=== PATIENT | female | born 1970 | race Asian ===

== ENCOUNTER → 2017-05-25 | Outpatient (CLI) | payer OTHER ==
--- NOTE | 2017-05-25 14:50 | REP ---
Bilateral extremity duplex venous ultrasound: History: Evaluate for reflux of DVT. DVT evaluation: The deep veins are anechoic and fully compressible from the groin to the popliteal fossa in both lower extremities on two-dimensional scanning. Color flow imaging is homogeneous. Spectral Doppler interrogation demonstrates intact respiratory variation in flow and normal manual augmentation of flow bilaterally. There is no evidence of DVT. Reflux evaluation: There is no observable reflux in the superficial or deep system of the right lower extremity with bed tilted or standing. The right greater saphenous vein measures 4.7 mm at the saphenofemoral junction in diameter. At the midthigh level its measurement is 4.1 mm and at the knee 4.7 mm. The lesser saphenous vein on the right measures 1.9 mm. The anterior accessory greater saphenous vein is present but does not show reflux and it measures 3.4 mm. On the left, there is reflux greater than 0.5 seconds in duration seen at the level of the common femoral vein, left anterior accessory greater saphenous vein. At these two levels the reflux has a duration of 0.9 seconds and 3.2 seconds respectively. The greater saphenous vein appears to be partially duplicated in the thigh on the left side. The greater saphenous dimensions are 4.0 mm at the saphenofemoral junction, 3.2 mm at midthigh, and 4.7 mm at the knee. The lesser saphenous vein measures 2.2 mm in AP dimension and the anterior accessory greater saphenous vein measures 3.9 mm. Impression: There is mild reflux in the common femoral vein and proximal anterior accessory greater saphenous vein on the left side. 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 No other significant reflux is seen on the left. No reflux is observed on the right. There is no evidence of DVT on either side. Signed by Mitchell Smith MD 05/25/2017 03:32 P
== END ==
LOC: M RAD 12:19
PROVIDERS: ATTEND Surgery Vascular Surgery
DX: I87.2 Venous insufficiency (chronic) (peripheral) (principal)

== ENCOUNTER → 2018-02-18 | Outpatient (CLI) | payer OTHER | LOC: M CARPUL 13:13 | DX: Z01.810 Encounter for preprocedural cardiovascular examination (principal); C50.919 Malignant neoplasm of unspecified site of unspecified female breast | CPT/HCPCS: 93306 ==

== ENCOUNTER → 2018-09-01 | Outpatient (CLI) | payer OTHER ==
--- NOTE | 2018-09-01 13:51 | REP ---
PET/CT: HISTORY: Restaging breast carcinoma. Carcinoma left breast. COMPARISONS: No comparison imaging. TECHNIQUE: 59 minutes following the intravenous injection of a 8.72 mCi dose of F-18 FDG, three-dimensional PET scintigraphy is acquired from the skull base to the proximal thighs. Triplanar noncontrast CT scanning is acquired through the same anatomic range for attenuation correction, and image registration with scan parameters optimized to minimize radiation exposure to the patient. PET scintigraphy and CT datasets were fused and displayed on a workstation with multiplanar and projection display capability. PET/CT FINDINGS: The patient is status post bilateral mastectomy and augmentation. There is no evidence of axillary, chest wall, or dermal hypermetabolic uptake in the chest or elsewhere. No abnormal j carlos uptake is seen in the chest, abdomen, pelvis or in the neck soft tissues. There is a right-sided Iilcyc-V-Acnn catheter. An IUD is seen in place in the uterus. There is no abnormal hypermetabolic uptake. There is no evidence of pleural effusion or pulmonary parenchymal nodule. No skeletal hypermetabolic uptake is appreciated. IMPRESSION: Negative PET scintigraphy. The patient status post mastectomy and bilateral augmentation implants, IUD, and right-sided [id number]. Electronically Signed by Mitchell Smith MD 09/01/2018 05:05 P
== END ==
LOC: M PLARAD 09:32
PROVIDERS: ATTEND Internal Medicine Medical Oncology
DX: C50.912 Malignant neoplasm of unspecified site of left female breast (principal); Z17.0 Estrogen receptor positive status [ER+]; Z90.13 Acquired absence of bilateral breasts and nipples; Z97.5 Presence of (intrauterine) contraceptive device
CPT/HCPCS: 78815; A9552

== ENCOUNTER → 2019-05-16 | Outpatient (CLI) | payer OTHER ==
--- NOTE | 2019-05-17 07:24 | ECHO ---
DATE OF PROCEDURE: 05/16/2019 AGE: 48 GENDER: Female. HEIGHT: 64 inches. WEIGHT: 128 pounds. BODY SURFACE AREA: 1.57 sq m. OUTPATIENT REFERRING PHYSICIAN: Dr. Donavan Sharma INDICATION: Cardiotoxic chemotherapy. MEASUREMENTS: 2D measurements: RV - 3.8 cm LV - 3.8 cm Septum 1.0 cm Posterior wall 1.0 cm Aortic root 2.6 cm LA - 3.6 cm LVEF 65% Doppler measurements: AV - 1.3 m/s LVOT - 0.94 m/s LVOT diameter 1.9 cm MV-E 64 A72 E/A ratio 0.9 Early mitral deceleration time 180 ms E prime medial 6.9 A prime medial 9.7 E prime lateral 10.7 E/E prime average 7.3 PCWP 10.9 mmHg PV - 0.8 m/s Pulmonary artery acceleration time 150 ms RVSP 24 mmHg IVC - 2.2 cm COMMENTS: Normal sinus rhythm without intraventricular conduction disturbance. M-mode and two-dimensional echocardiography was performed with pulsed, continuous wave, color flow and tissue Doppler studies. Normal left ventricular size, wall thickness and wall motion. Normal left atrial size and Doppler assessment of LV diastolic function and estimated mean left atrial pressure. Normal right heart chamber sizes and motion and estimated pulmonary arterial pressure. IVC size upper limits of normal with a normal respiratory collapse against an elevated central venous pressure. Normal appearing and functioning valvular structures. No apparent intracardiac mass or pericardial effusion.
== END ==
LOC: M CARPUL 09:19
PROVIDERS: ATTEND Internal Medicine Medical Oncology
DX: C50.912 Malignant neoplasm of unspecified site of left female breast (principal)